=== PATIENT | female | born 1950 | race African-American/Black ===

== ENCOUNTER 2016-11-14 10:24 | Emergency (ER) | payer MEDICARE, OTHER ==
[~2016-11-14] VITALS: Ht 167.6 cm; Wt 118.5 kg
[~2016-11-14 10:24] MED LIST: ASPI-650 PO; METO-53; VERA100C4 PO
[2016-11-14 10:25] VITALS: Ht 167.6 cm; Wt 118.5 kg
[2016-11-14] MEDS ORDERED: LIDOCAINE/MYLANTA 40 ML BTL PO STA (11:03)
[2016-11-14 11:31] LABS: BASOPHIL # 0.1 10^3/ul (0.0-0.1); BASOPHILS % 0.7 % (0.0-2.0); EOSINOPHILS # 0.3 10^3/ul (0.0-0.5); EOSINOPHILS % 3.7 % (0.0-7.0); HEMATOCRIT 31.5 % (37.0-47.0); HEMOGLOBIN 9.9 g/dl (12.0-16.0); LYMPHOCYTES # 1.2 10^3/ul (0.8-2.9); MEAN CORPUSCULAR HEMOGLOBIN 32.1 pg (29.0-33.0); MEAN CORPUSCULAR HGB CONC 31.4 g/dl (32.0-37.0); MEAN CORPUSCULAR VOLUME 102.3 fl (82.0-101.0); MEAN PLATELET VOLUME 9.4 fl (7.4-10.4); MONOCYTE # 0.6 10^3/ul (0.3-0.9); MONOCYTES % 6.8 % (0.0-11.0); NEUTROPHIL # 6.9 10^3/ul (1.6-7.5); NEUTROPHILS % 75.3 % (39.0-77.0); PLATELET COUNT 343 10^3/UL (140-415); RED BLOOD COUNT 3.08 10^6/ul (4.20-5.40); RED CELL DISTRIBUTION WIDTH 14.6 % (11.5-14.5); WHITE BLOOD COUNT 9.2 10^3/ul (4.8-10.8)
[2016-11-14 12:07] LABS: ALBUMIN 3.9 g/dl (3.3-4.9); ALBUMIN/GLOBULIN RATIO 1.08; BILIRUBIN,INDIRECT 0.4 mg/dl (0-1.1); BILIRUBIN,TOTAL 0.4 mg/dl (0.2-1.3); CALCIUM 9.2 mg/dl (8.4-10.2); CREATININE 0.72 mg/dl (0.44-1.00); POTASSIUM 4.1 mmol/L (3.5-5.1); TOTAL PROTEIN 7.5 g/dl (6.1-8.1)
[2016-11-14] MEDS ORDERED: RANI150T9 PO (12:28)
[2016-11-14] MEDS ORDERED: ONDA4TAB14 PO (12:28)
--- NOTE | 2016-11-14 12:31 | ERD ---
ER Documentation Chief Complaint Date/Time DATE: 11/14/16 TIME: 12:30 Chief Complaint Pt presents with AP/cramping since last. Denies N/V/D. HPI This 66-year-old female complains of onset last night of some epigastric cramps. She says that she is taking pain medication oxycodone for her recent right knee replacement. She says medication sometimes upsetting her stomach and making her nauseated. She said she took medication last night then took some Tums and her epigastric cramping was resolved. She has no nausea vomiting diarrhea and says her pain is gone now. She had no chest pain shortness of breath and pain in her jaw elbows shoulders back. She has no pain in the back dysuria or hematuria.. She is not complaining of any knee pain or swelling ROS All systems reviewed and are negative except as per history of present illness. Medications Home Meds Active Scripts Ranitidine Hcl* (Zantac*) 150 Mg Tablet, 150 MG PO BID Y for EPIGASTRIC PAIN, # 30 TAB Prov:LISSETH FARMER DO 11/14/16 Ondansetron (Ondansetron Odt) 4 Mg Tab.rapdis, 4 MG PO Q6H Y for NAUSEA AND/OR VOMITING, #10 TAB Prov:LISSETH FARMER DO 11/14/16 Reported Medications Aspirin (Aspirin) 81 Mg Tablet, 81 MG PO DAILY 01/11/12 Verapamil Hcl* (Verapamil ER*) 100 Mg Cap24h.pel, 120 MG PO DAILY 01/11/12 Metoprolol (Lopressor) 50 Mg Tablet 09/01/10 Allergies Allergies: Coded Allergies: Yaw Inhibitors (Verified Allergy, Severe, ANGIOEDEMA, 02/20/11) Penicillins (Verified Allergy, Severe, RASH, 02/19/11) PMhx/Soc History of Surgery: Yes (HX HYSTERECTOMY, B/L KNEE REPLACEMENT ) Anesthesia Reaction: No Hx Neurological Disorder: No Hx Respiratory Disorders: No Hx Cardiac Disorders: Yes (CAD, M.I. MANY YEARS AGO, HTN , CHF , HEART MURMUR ) Hx Psychiatric Problems: No Hx Miscellaneous Medical Probl: No Hx Alcohol Use: Yes (SOCIALLY) Hx Substance Use: No Hx Tobacco Use: No Smoking Status: Never smoker FmHx Family History: No coronary disease Physical Exam Vitals Vital Signs Date Time Temp Pulse Resp B/P Pulse Ox O2 Delivery O2 Flow Rate FiO2 11/14/16 10:25 97.9 76 16 185/90 99 Physical Exam Const: Well-developed, well-nourished Head: Atraumatic, normocephalic Eyes: Normal Conjunctiva, PERRLA, EOMI, normal sclera, no nystagmus ENT: Normal External Ears, Nose and Mouth, moist mucus membranes. Neck: Full range of motion. No meningismus, no lymphadenopathy. Resp: Clear to auscultation bilaterally, no wheezing, rhonchi, rales Cardio: Regular rate and rhythm, no murmurs, S1 S2 present Abd: Soft, very slight epigastric tenderness, non distended. Normal bowel sounds, no guarding or rebound, no pulsitile abdominal masses or bruits Skin: No petechiae or rashes, no ecchymosis , no maculopapular rash Back: No midline or flank tenderness Ext: No cyanosis, or edema, FROM x 4, normal inspection, neurovascularly intact x 4 Neur: Awake and alert, STR 5/5 x 4, sensation intact x 4, no focal findings, cerebellum intact Psych: Normal Mood and Affect Result Diagram: 11/14/16 1112 11/14/16 1112 Results 24 hrs Laboratory Tests Test 11/14/16 11:12 White Blood Count 9.210^3/ul Red Blood Count 3.0810^6/ul Hemoglobin 9.9g/dl Hematocrit 31.5% Mean Corpuscular Volume 102.3fl Mean Corpuscular Hemoglobin 32.1pg Mean Corpuscular Hemoglobin Concent 31.4g/dl Red Cell Distribution Width 14.6% Platelet Count 46410^3/UL Mean Platelet Volume 9.4fl Neutrophils % 75.3% Lymphocytes % 13.0% Monocytes % 6.8% Eosinophils % 3.7% Basophils % 0.7% Nucleated Red Blood Cells % 0.0/100WBC Neutrophils # 6.910^3/ul Lymphocytes # 1.210^3/ul Monocytes # 0.610^3/ul Eosinophils # 0.310^3/ul Basophils # 0.110^3/ul Nucleated Red Blood Cells # 0.010^3/ul Sodium Level 143mmol/L Potassium Level 4.1mmol/L Chloride Level 102mmol/L Carbon Dioxide Level 29mmol/L Anion Gap 16 Blood Urea Nitrogen 11mg/dl Creatinine 0.72mg/dl Glucose Level 111mg/dl Calcium Level 9.2mg/dl Total Bilirubin 0.4mg/dl Direct Bilirubin 0.00mg/dl Indirect Bilirubin 0.4mg/dl Aspartate Amino Transf (AST/SGOT) 24IU/L Alanine Aminotransferase (ALT/SGPT) 28IU/L Alkaline Phosphatase 66IU/L Troponin I < 0.012ng/ml Total Protein 7.5g/dl Albumin 3.9g/dl Globulin 3.60g/dl Albumin/Globulin Ratio 1.08 Lipase 16U/L Current Medications Medications (Trade) Dose Ordered Sig/Kody Route PRN Reason Start Time Stop Time Status Last Admin Dose Admin Miscellaneous Medication (Gi Cocktail (2)) 40 ml ONCE STAT PO 11/14/16 11:03 11/14/16 11:04 DC 11/14/16 11:10 Procedures/MDM Blood work is unremarkable. She is given a GI cocktail and she says she has been pain-free Feel that her pain is likely due to the pain medication. We will give her some Zantac and Zofran. She could have some gastritis or peptic ulcer disease as well could be from the stress of the recent surgery. Will treat symptomatically Departure Diagnosis: Primary Impression: Dyspepsia Condition: Stable Patient Instructions: Gastritis Vs. Ulcer LISSETH FARMER DO Nov 14, 2016 12:31
[2016-11-14 13:05] VITALS: BP 168/88; PULSE 78; RESP 16; TEMP 98
== END 2016-11-14 13:06 | disposition home or self-care (01) ==
LOC: E/R 10:24
DX: R10.13 Epigastric pain (principal); I10 Essential (primary) hypertension; I50.9 Heart failure, unspecified; I25.10 Atherosclerotic heart disease of native coronary artery without angina pectoris; Z79.82 Long term (current) use of aspirin; Z96.651 Presence of right artificial knee joint; Z96.652 Presence of left artificial knee joint
CPT/HCPCS: 36415; 80053; 83690; 84484; 85025